=== PATIENT | female | born 1990 | race Caucasian/White ===

== ENCOUNTER 2022-07-14 02:48 | Emergency (ER) | payer BC ==
[~2022-07-14] VITALS: Ht 162.6 cm; Wt 74.8 kg
--- NOTE | 2022-07-14 03:09 | NUR ---
BIBSELF C/O CP FOR THE PAST FEW DAYS FELT WORSE THIS MORNING. PATIENT IS AAOX4. AMBULATORY. ABLE TO MAKE NEEDS KNOWN. PLACED COMFORTABLY IN BED. VITALS CHECKED
--- NOTE | 2022-07-14 03:26 | NUR ---
FORENSIC EXAMINER AT PT'S BEDSIDE
--- NOTE | 2022-07-14 03:26 | NUR ---
RAC 20G IV LINE STARTED BLOOD WORK COLLECTED
[2022-07-14] MEDS ORDERED: ONDANSETRON HCL/PF 4 MG/2 ML VIAL ONE (03:28)
[2022-07-14] MEDS ORDERED: PANTOPRAZOLE 40 MG VIAL ONE (03:28)
[2022-07-14] MEDS: ONDANSETRON HCL/PF 4 MG/2 ML VIAL IVP ONE (03:34)
[2022-07-14] MEDS: PANTOPRAZOLE 40 MG VIAL IV ONE (03:34)
[2022-07-14 03:55] LABS: BASOPHILS % (AUTO) 0.3 % (0.0-2.0); EOSINOPHILS % (AUTO) 0.7 % (0.0-6.0); HEMATOCRIT 43 % (33-45); HEMOGLOBIN 14.3 g/dL (11.5-14.8); LYMPHOCYTES # (AUTO) 2.2 K/uL (0.8-4.8); LYMPHOCYTES % (AUTO) 18.3 % (20.0-44.0); MEAN CORPUSCULAR HGB CONC 33 g/dl (31.0-36.0); MEAN CORPUSCULAR VOLUME 87 fL (82-100); MONOCYTES # (AUTO) 0.7 K/uL (0.1-1.30); MONOCYTES % (AUTO) 5.8 % (2.0-12.0); NEUTROPHILS # (AUTO) 8.9 K/uL (1.8-8.9); NEUTROPHILS % (AUTO) 74.9 % (43.0-81.0); PLATELET COUNT (AUTO) 267 K/uL (150-450); WHITE BLOOD COUNT (AUTO) 11.9 K/uL (4.3-11.0)
[2022-07-14 04:17] LABS: CALCIUM, SERUM 8.8 mg/dL (8.5-10.1); CARBON DIOXIDE 27 mmol/L (21-32); CHLORIDE 104 mmol/L (98-107); CREATININE 0.9 mg/dL (0.6-1.3); GLUCOSE 99 mg/dL (74-106); POTASSIUM 3.8 mmol/L (3.5-5.1); SODIUM SERUM 140 mmol/L (136-145); UREA NITROGEN, BLOOD 8 mg/dL (7-18)
[2022-07-14 04:23] LABS: ALANINE AMINOTRANSFERASE 42 U/L (12-78); ALBUMIN 3.9 g/dL (3.4-5.0); ALKALINE PHOSPHATASE 84 U/L (46-116); ASPARTATE AMINOTRANSFERASE 42 U/L (15-37); BILIRUBIN,DIRECT 0.2 mg/dL (0.0-0.2); BILIRUBIN,TOTAL 0.3 mg/dL (0.2-1.0); TOTAL PROTEIN, SERUM 8.3 g/dL (6.4-8.2)
[2022-07-14 04:56] VITALS: BP 132/70
--- NOTE | 2022-07-14 04:56 | NUR ---
Patient discharged to home in stable condition. Written and verbal after care instructions given. Patient verbalizes understanding of instruction.
== END 2022-07-14 04:57 | disposition home or self-care (01) ==
LOC: ER 03:00
DX: R07.89 Other chest pain (principal)
CPT/HCPCS: 99285; 96374; 71045; 96375; 93005; 85025; 80048; 80076; 36415; 84484; J2405; C9113